=== PATIENT | female | born 1960 ===

== ENCOUNTER 2017-03-27 19:37 | Emergency (ER) | payer OTHER ==
[2017-03-27 19:47] VITALS: BP 139/78; PULSE 113; RESP 18; TEMP 99.9; O2SAT 96
[2017-03-27] MEDS ORDERED: Sodium Chloride 0.9% 1,000 ML IV STA (20:41)
--- NOTE | 2017-03-27 20:48 | ED PDOC ---
HPI: Allergic Reaction Time Seen by Provider: 03/27/17 19:51 Chief Complaint (Nursing): Allergic Reaction Chief Complaint (Provider): Allergic Reaction History Per: Patient History/Exam Limitations: no limitations Onset/Duration Of Symptoms: Hrs Current Symptoms Are (Timing): Still Present Context: Food (shrimp) Possible Cause: Food (shrimp) Associated Symptoms: Skin Rash Additional Complaint(s): Deidre Soto, a 56 year old female, who has a past medical history of hypertension and diabetes presents to the ED for an allergic reaction. The patient states that she ate some shrimp around 1400, and then later noticed and itchy red rash on her thighs, face and abdomen. She reports that she had a similar reaction in the past but it was from eating the head of shrimp and not the tail. PMD: Enrique Sainz I Past Medical History Reviewed: Historical Data, Nursing Documentation, Vital Signs Vital Signs: Last Vital Signs Temp 99.9 F H 03/27/17 19:45 Pulse 113 H 03/27/17 19:45 Resp 18 03/27/17 19:45 BP 139/78 03/27/17 19:45 Pulse Ox 96 03/27/17 19:45 - Medical History PMH: Diabetes, HTN, Hypercholesterolemia, Hypothyroidism - Surgical History Surgical History: Appendectomy, Cholecystectomy, ( x 2) - Family History Family History: States: Unknown Family Hx - Home Medications Home Medications: Ambulatory Orders Medication Instructions Recorded Ofloxacin Ophth 0.3% [Ocuflox 1 drop LEFTEYE Q6H #0 bottle 07/20/14 Ophth 0.3%] DiphenhydrAMINE [Benadryl] 50 mg PO Q6H PRN #20 cap 03/27/17 Famotidine [Pepcid] 20 mg PO DAILY #6 tab 03/27/17 predniSONE [predniSONE Tab] 20 mg PO DAILY #12 tab 03/27/17 - Allergies Allergies/Adverse Reactions: Allergies Allergy/AdvReac Type Severity Reaction Status Date / Time allopurinol Allergy RASH Verified 03/27/17 19:48 banana Allergy RASH Verified 03/27/17 19:48 lisinopril Allergy RASH Verified 03/27/17 19:48 shrimp Allergy RASH Verified 03/27/17 19:48 Review of Systems ROS Statement: Except As Marked, All Systems Reviewed And Found Negative Skin: Positive for: Rash (itchy rash to face, thighs and abdomen.) Physical Exam - Reviewed Nursing Documentation Reviewed: Yes Vital Signs Reviewed: Yes - Physical Exam Appears: Positive for: Non-toxic, No Acute Distress Head Exam: Positive for: ATRAUMATIC, NORMAL INSPECTION, NORMOCEPHALIC Skin: Positive for: Normal Color, Warm, Dry, Rash (Erythematous papules to abdomen and b/l upper thighs) Eye Exam: Positive for: Normal appearance, EOMI, PERRL. 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 Negative for: Tachycardia Respiratory: Positive for: Normal Breath Sounds. Negative for: Wheezing, Respiratory Distress Neurologic/Psych: Positive for: Alert, Oriented, Gait - Laboratory Results Result Diagrams: 03/27/17 21:36 03/27/17 21:36 - ECG O2 Sat by Pulse Oximetry: 96 (RA) Pulse Ox Interpretation: Normal - Progress ED Course And Treament: 195 Initial Impression 56 y/o female presenting with allergic reaction Initial Plan: * CMP * CBC * Benadryl 25mg PO * NS 1000mls IV 1000mls/hr * Pepcid 20mg PO * Solu-medrol 125mg IV * Reevaluation Scribe Attestation Documented by Ceci Lombardi acting as a scribe for Yvonne Pacheco PA-C. Scribe Attestation All medical record entries made by the Scribe were at my direction and personally dictated by me. I have reviewed the chart and agree that the record accurately reflects my personal performance of the history, physical exam, medical decision making, and the department course for this patient. I have also personally directed, reviewed, and agree with the discharge instructions and disposition. Disposition - Clinical Impression Clinical Impression: Allergic reaction - Patient ED Disposition Is Patient to be Admitted: No Counseled Patient/Family Regarding: Diagnosis, Need For Followup, Rx Given - Disposition Disposition: Routine/Home Disposition Time: 22:14 Condition: GOOD Prescriptions: DiphenhydrAMINE [Benadryl] 50 mg PO Q6H PRN #20 cap PRN Reason: Itching / Pruritus Famotidine [Pepcid] 20 mg PO DAILY #6 tab predniSONE [predniSONE Tab] 20 mg PO DAILY #12 tab Instructions: General Allergic Reaction (ED) Forms: [facility] (Croatian), [facility] ED School/Work Excuse
[2017-03-27 21:43] LABS: HEMATOCRIT 44.6 % (34.0-47.0); MEAN CELL VOLUME 95.6 fl (81.0-99.0); MEAN CORPUSCULAR HEMOGLOBIN 31.8 pg (27.0-31.0); MEAN CORPUSCULAR HGB CONC 33.3 g/dL (33.0-37.0); RED CELL DISTRIBUTION WIDTH 13.4 % (11.5-14.5); WHITE BLOOD COUNT 11.4 K/uL (4.8-10.8)
[2017-03-27 21:59] LABS: ALB/GLOB RATIO 1.2 (1.0-2.1); ALKALINE PHOSPHATASE 59 U/L (38-126); ALT/SGPT 98 U/L (9-52); AST/SGOT 58 U/L (14-36); BILIRUBIN,TOTAL 0.5 mg/dl (0.2-1.3); BLOOD UREA NITROGEN 20 mg/dl (7-17); CALCIUM 10.4 mg/dL (8.4-10.2); CARBON DIOXIDE 27 mmol/L (22-30); CHLORIDE 99 mmol/L (98-107); GFR AFRICAN-AMERICAN > 60; GLUCOSE,RANDOM 130 mg/dL (65-105); POTASSIUM 3.9 MMOL/L (3.6-5.0); SODIUM 140 mmol/l (132-148); TOTAL PROTEIN 7.6 G/DL (6.3-8.2)
== END 2017-03-28 00:03 | disposition home or self-care (01) ==
LOC: H.ER 19:37
DX: T78.1XXA Other adverse food reactions, not elsewhere classified, initial encounter (principal); X58.XXXA Exposure to other specified factors, initial encounter
CPT/HCPCS: 80053; 85027; 99282; J2930; J7040

== ENCOUNTER 2017-05-05 22:19 | Inpatient (IN) | payer BC, OTHER ==
[2017-05-05] MEDS ORDERED: Albuterol-Ipratrop 3 mg / 0.5 (3 ml) UD INH STA (22:51)
[2017-05-05 23:09] LABS: BASO # 0.1 K/uL (0.0-0.2); BASO % 0.9 % (0.0-2.0); EOS # 0.1 K/uL (0.0-0.7); EOS % 1.7 % (0.0-4.0); HEMATOCRIT 46.5 % (34.0-47.0); LYMPH # 1.6 K/uL (1.0-4.3); LYMPH % 20.1 % (20.0-40.0); MEAN CELL VOLUME 95.1 fl (81.0-99.0); MEAN CORPUSCULAR HEMOGLOBIN 31.6 pg (27.0-31.0); MEAN CORPUSCULAR HGB CONC 33.3 g/dL (33.0-37.0); MEAN PLATELET VOLUME 9.1 fl (7.2-11.7); MONO % 13.4 % (0.0-10.0); NEUT % 63.9 % (50.0-75.0); NRBC % 0.1 % (0.0-0.0); RED CELL DISTRIBUTION WIDTH 13.6 % (11.5-14.5); WHITE BLOOD COUNT 7.8 K/uL (4.8-10.8)
[2017-05-05 23:17] LABS: BLOOD UREA NITROGEN 18 mg/dl (7-17); CARBON DIOXIDE 27 mmol/L (22-30); CHLORIDE 103 mmol/L (98-107); GFR AFRICAN-AMERICAN > 60; GLUCOSE,RANDOM 125 mg/dL (65-105); POTASSIUM 4.2 MMOL/L (3.6-5.0); SODIUM 138 mmol/l (132-148)
[2017-05-05] MEDS ORDERED: Magnesium Sulfate 2 gm/50 ml 2 GM/50 ML BAG IVPB ONE (23:21)
[2017-05-05] MEDS ORDERED: Magnesium Sulfate 2 gm/50 ml 2 GM/50 ML BAG ONE (23:45)
--- NOTE | 2017-05-05 23:48 | ED PDOC ---
HPI: SOB/CHF/COPD Chief Complaint (Nursing): Shortness Of Breath Chief Complaint (Provider): my asthma is back History Per: Patient History/Exam Limitations: no limitations Onset/Duration Of Symptoms: Days (2), Gradual Current Symptoms Are (Timing): Still Present Quality: Tightness Exacerbating Factor(s): Exertion Severity: Moderate Recently: Treated By A Physician Additional Complaint(s): 56yo female hx asthma presents c/o SOB, cough and chest tightness for 2 days. Using albuterol nebs q4h at home without improvement. Denies fever, hemoptysis or recent hospitalization. Thinks construction on her roof triggered the attack- dust and odors at home. PMD Lio Past Medical History Reviewed: Historical Data, Nursing Documentation, Vital Signs Vital Signs: Last Vital Signs Temp 99.8 F H 05/05/17 22:27 Pulse 106 H 05/05/17 22:27 Resp 20 05/05/17 23:00 BP 144/82 05/05/17 22:27 Pulse Ox 94 L 05/06/17 00:10 - Medical History PMH: Asthma, Diabetes, HTN, Hypercholesterolemia, Hypothyroidism - Surgical History Surgical History: Appendectomy, Cholecystectomy, ( x 2) - Family History Family History: States: Unknown Family Hx - Living Arrangements Living Arrangements: With Family - Social History Current smoker - smoking cessation education provided: No - Home Medications Home Medications: Ambulatory Orders Medication Instructions Recorded Ofloxacin Ophth 0.3% [Ocuflox 1 drop LEFTEYE Q6H #0 bottle 07/20/14 Ophth 0.3%] DiphenhydrAMINE [Benadryl] 50 mg PO Q6H PRN #20 cap 03/27/17 Famotidine [Pepcid] 20 mg PO DAILY #6 tab 03/27/17 predniSONE [predniSONE Tab] 20 mg PO DAILY #12 tab 03/27/17 - Allergies Allergies/Adverse Reactions: Allergies Allergy/AdvReac Type Severity Reaction Status Date / Time allopurinol Allergy RASH Verified 03/27/17 19:48 banana Allergy RASH Verified 03/27/17 19:48 lisinopril Allergy RASH Verified 03/27/17 19:48 shrimp Allergy RASH Verified 03/27/17 19:48 Review of Systems ROS Statement: Except As Marked, All Systems Reviewed And Found Negative Constitutional: Negative for: Fever, Chills Cardiovascular: Positive for: Chest Pain Respiratory: Positive for: Cough, Shortness of Breath, Pleuritic Pain, Wheezing Gastrointestinal: Negative for: Nausea, Abdominal Pain Genitourinary Female: Negative for: Dysuria, Frequency Skin: Negative for: Rash, Lesions, Jaundice Neurological: Negative for: Weakness, Dizziness Psych: Negative for: Depression Physical Exam - Reviewed Nursing Documentation Reviewed: Yes Vital Signs Reviewed: Yes - Physical Exam Appears: Positive for: Well, Non-toxic, No Acute Distress Head Exam: Positive for: ATRAUMATIC, NORMAL INSPECTION, NORMOCEPHALIC Skin: Positive for: Normal Color, Warm, DRY Eye Exam: Positive for: EOMI, Normal appearance, PERRL ENT: Positive for: Normal ENT Inspection Neck: Positive for: Normal, Painless ROM Cardiovascular/Chest: Positive for: Regular Rate, Rhythm Respiratory: Positive for: Decreased Breath Sounds, Wheezing. Negative for: Respiratory Distress Gastrointestinal/Abdominal: Positive for: Normal Exam, Bowel Sounds, Soft. Negative for: Tenderness Back: Positive for: Normal Inspection Extremity: Positive for: Normal ROM Neurologic/Psych: Positive for: Alert, Oriented. Negative for: Motor/Sensory Deficits - Laboratory Results Result Diagrams: 05/05/17 23:05 05/05/17 23:05 - ECG ECG: Positive for: Interpreted By In ECG Rhythm: Positive for: Sinus Tachycardia, ST/T Changes O2 Sat by Pulse Oximetry: 94 Pulse Ox Interpretation: Abnormal - Radiology X-Ray: Interpreted by In X-Ray Interpretation: No Acute Disease Medical Decision Making Medical Decision Making: workup for asthma initiated with bronchodilators, mag sulfate, solumedrol labs reviewed and clinically unremarkable endorsed Dr Baum 1220am pending re-eval and dispo pt is a [employer] employee. Disposition - Clinical Impression Clinical Impression: Dyspnea, Asthma exacerbation - Patient ED Disposition Is Patient to be Admitted: Transfer of Care - Disposition Disposition: Transfer of Care Disposition Time: 00:28 Condition: STABLE Forms: [employer] Connect (Faroese) Patient Signed Over To: Toño Baum Handoff Comments: re-eval and dispo
[2017-05-06] MEDS ORDERED: Albuterol-Ipratrop 3 mg / 0.5 (3 ml) UD INH STA ×2 (00:23→02:26)
--- NOTE | 2017-05-06 00:51 | ED PDOC ---
- Laboratory Results Result Diagrams: 05/05/17 23:05 05/05/17 23:05 - ECG O2 Sat by Pulse Oximetry: 94 Medical Decision Making Medical Decision Making: Time: 00:00 --Patient is signed out to me by Dr. Hermelindo Alfred III. Pending labs and reevaluation. Time: 2:26 --Labs reviewed show no clinically significant abnormalities. Patient reports feeling persistently short of breath. --On reexamination, patient still has bilateral expiratory wheezing. Will order third Duoneb treatment. --Patient will be hospitalized as observation status for asthma exacerbation, under the service of Dr. Vaca. Scribe Attestation: Documented by Lisandra Uriarte, acting as a scribe for Toño Baum MD Provider Scribe Attestation: All medical record entries made by the Scribe were at my direction and personally dictated by me. I have reviewed the chart and agree that the record accurately reflects my personal performance of the history, physical exam, medical decision making, and the department course for this patient. I have also personally directed, reviewed, and agree with the discharge instructions and disposition. Disposition Discussed With : Enrique Vaca - Clinical Impression Clinical Impression: Dyspnea, Asthma exacerbation - POA Present On Arrival: None - Disposition Disposition: Hospitalized as Observation Patient Disposition Time: 02:26 Condition: FAIR
[2017-05-06] MEDS ORDERED: Albuterol-Ipratrop 3 mg / 0.5 (3 ml) UD ONE ×2 (01:16→02:35)
[2017-05-06] MEDS ORDERED: methylPREDNISolone 60 MG in Sodium Chloride 0.9% 50 ML IV SCH (04:00)
[2017-05-06] MEDS ORDERED: Albuterol-Ipratrop 3 mg / 0.5 (3 ml) UD INH SCH ×2 (04:00→08:00)
[2017-05-06] MEDS: Levothyroxine 88 MCG TAB PO SCH (08:38)
[2017-05-06] MEDS: Fluticasone-Salmeterol 250-50mcg Diskus IH SCH ×2 (08:39→21:09)
[2017-05-06] MEDS: Promethazine DM 12.5 mg-30 mg/10 ml Syrup PO PRN ×2 (08:48→14:33)
[2017-05-06 09:00] LABS: ABG ALLEN TEST YES; ARTERIAL BLOOD GAS HCO3 23.4 mmol/L (21-28); ARTERIAL BLOOD GAS O2 CAPACITY 20.8 mL/dL (16-24); ARTERIAL BLOOD GAS O2 CONTENT 19.8 ML/dL (15-23); ARTERIAL BLOOD GAS PH 7.42 (7.35-7.45); ARTERIAL BLOOD GAS PO2 62 mm/Hg (80-100); ARTERIAL BLOOD HGB O2 SAT 91.6 % (95.0-98.0); CARBOXYHEMOGLOBIN 2.1 % (0.5-1.5); HHB 4.7 % (0.0-5.0); METHEMOGLOBIN 1.7 % (0.0-3.0)
[2017-05-06] MEDS ORDERED: METFORMIN HCL PO SCH (09:00)
[2017-05-06] MEDS ORDERED: SITAGLIPTIN PHOS PO SCH (09:00)
--- NOTE | 2017-05-06 09:51 | RAD ---
HISTORY: cough COMPARISON: No prior. TECHNIQUE: Chest PA and lateral FINDINGS: LUNGS: No active pulmonary disease. PLEURA: No significant pleural effusion identified. No pneumothorax apparent. CARDIOVASCULAR: Atherosclerotic aortic calcifications. Cardiomediastinal silhouette within normal limits. OSSEOUS STRUCTURES: Unchanged. VISUALIZED UPPER ABDOMEN: Normal. OTHER FINDINGS: None. IMPRESSION: No active disease.
--- NOTE | 2017-05-06 12:15 | CARD ---
APPROVED REPORT EKG Measurement Heart [id number] <Conclusion> Sinus tachycardia Right bundle branch block Abnormal ECG
[2017-05-06] MEDS: Albuterol-Ipratrop 3 mg / 0.5 (3 ml) UD INH SCH ×4 (13:55→23:58)
[2017-05-06] MEDS: Insulin Regular 100 units/ml SC SCH (22:15)
[2017-05-07] MEDS: Albuterol-Ipratrop 3 mg / 0.5 (3 ml) UD INH SCH ×3 (04:59→11:21)
[2017-05-07] MEDS: Levothyroxine 88 MCG TAB PO SCH (06:41)
[2017-05-07] MEDS: Insulin Regular 100 units/ml SC SCH ×2 (07:34→12:16)
[2017-05-07] MEDS: Fluticasone-Salmeterol 250-50mcg Diskus IH SCH (08:40)
[2017-05-07 09:00] VITALS: BP 118/66; PULSE 102; RESP 20; TEMP 97.8; O2SAT 96
--- NOTE | 2017-05-07 10:23 | CP.PCM.DIS ---
Provider - Provider Date of Admission: 05/06/17 14:18 Attending physician: Enrique Salas MD Time Spent in preparation of Discharge (in minutes): 35 Diagnosis - Discharge Diagnosis (1) Diabetes 1.5, managed as type 2 Status: Acute (2) Hypertension Status: Acute (3) Asthma exacerbation Status: Acute Hospital Course - Lab Results Lab Results: Most Recent Lab Values WBC 7.8 K/uL (4.8-10.8) 05/05/17 23:05 RBC 4.88 Mil/uL (3.80-5.20) 05/05/17 23:05 Hgb 15.5 g/dL (12.0-16.0) 05/05/17 23:05 Hct 46.5 % (34.0-47.0) 05/05/17 23:05 MCV 95.1 fl (81.0-99.0) 05/05/17 23:05 MCH 31.6 pg (27.0-31.0) H 05/05/17 23:05 MCHC 33.3 g/dL (33.0-37.0) 05/05/17 23:05 RDW 13.6 % (11.5-14.5) 05/05/17 23:05 Plt Count 242 K/uL (130-400) 05/05/17 23:05 MPV 9.1 fl (7.2-11.7) 05/05/17 23:05 Neut % (Auto) 63.9 % (50.0-75.0) 05/05/17 23:05 Lymph % (Auto) 20.1 % (20.0-40.0) 05/05/17 23:05 [place] % (Auto) 13.4 % (0.0-10.0) H 05/05/17 23:05 Eos % (Auto) 1.7 % (0.0-4.0) 05/05/17 23:05 Baso % (Auto) 0.9 % (0.0-2.0) 05/05/17 23:05 Neut # 5.0 K/uL (1.8-7.0) 05/05/17 23:05 Lymph # 1.6 K/uL (1.0-4.3) 05/05/17 23:05 [place] # 1.0 K/uL (0.0-0.8) H 05/05/17 23:05 Eos # 0.1 K/uL (0.0-0.7) 05/05/17 23:05 Baso # 0.1 K/uL (0.0-0.2) 05/05/17 23:05 pCO2 34 mm/Hg (35-45) L 05/06/17 07:23 pO2 62 mm/Hg (80-100) L 05/06/17 07:23 HCO3 23.4 mmol/L (21-28) 05/06/17 07:23 ABG pH 7.42 (7.35-7.45) 05/06/17 07:23 ABG Total CO2 23.1 mmol/L (22-28) 05/06/17 07:23 ABG O2 Saturation 95.1 % (95-98) 05/06/17 07:23 ABG O2 Content 19.8 ML/dL (15-23) 05/06/17 07:23 ABG Base Excess -1.7 mmol/L (-2.0-3.0) 05/06/17 07:23 ABG Hemoglobin 15.4 g/dL (11.7-17.4) 05/06/17 07:23 ABG Carboxyhemoglobin 2.1 % (0.5-1.5) H 05/06/17 07:23 POC ABG HHb (Measured) 4.7 % (0.0-5.0) 05/06/17 07:23 ABG Methemoglobin 1.7 % (0.0-3.0) 05/06/17 07:23 ABG O2 Capacity 20.8 mL/dL (16-24) 05/06/17 07:23 Jamal Test Yes 05/06/17 07:23 A-a O2 Difference 45.0 mm/Hg 05/06/17 07:23 Hgb O2 Saturation 91.6 % (95.0-98.0) L 05/06/17 07:23 FiO2 21.0 % 05/06/17 07:23 Blood Gas Comments room air 05/06/17 07:23 Sodium 138 mmol/l (132-148) 05/05/17 23:05 Potassium 4.2 MMOL/L (3.6-5.0) 11/30/17 23:05 Chloride 103 mmol/L (98-107) 05/05/17 23:05 Carbon Dioxide 27 mmol/L (22-30) 05/05/17 23:05 Anion Gap 12 (10-20) 05/05/17 23:05 BUN 18 mg/dl (7-17) H 05/05/17 23:05 Creatinine 0.8 mg/dl (0.7-1.2) 05/05/17 23:05 Est GFR ( Amer) > 60 05/05/17 23:05 Est GFR (Non-Af Amer) > 60 05/05/17 23:05 POC Glucose (mg/dL) 135 mg/dL (65-110) H 05/07/17 05:55 Random Glucose 125 mg/dL (65-105) H 05/05/17 23:05 Calcium 10.0 mg/dL (8.4-10.2) 05/05/17 23:05 Troponin I < 0.0120 ng/mL (0.00-0.120) 05/05/17 23:05 NT-Pro-B Natriuret Pep 60.4 pg/ml (0-900) 05/05/17 23:05 - Hospital Course Hospital Course: sob improved with therapy Discharge Exam - Head Exam Head Exam: ATRAUMATIC, NORMAL INSPECTION, NORMOCEPHALIC - Eye Exam Eye Exam: EOMI, Normal appearance, PERRL Pupil Exam: NORMAL ACCOMODATION, PERRL - GI/Abdominal Exam GI & Abdominal Exam: Normal Bowel Sounds - Rectal Exam Rectal Exam: NORMAL INSPECTION - Neurological Exam Neurological exam: Alert, CN II-XII Intact, Normal Gait, Oriented x3, Reflexes Normal - Psychiatric Exam Psychiatric exam: Normal Affect, Normal Mood - Skin Skin Exam: Dry, Intact, Normal Color, Warm Discharge Plan - Follow Up Plan Condition: FAIR Disposition: HOME/ ROUTINE Patient education suggested?: Yes Additional Instructions: discharge today followup with dr salas
--- NOTE | 2017-05-09 09:03 | HP ---
HISTORY OF PRESENT ILLNESS: Ms. Charles Escamilla is a 56-year-old female who was admitted via the emergency room because of shortness of breath, chest tightness for 2 days prior to presentation. She had used multiple aerosolized bronchodilators at home, but symptoms have persisted. She felt like passing out and was brought to the emergency room where she was admitted for acute exacerbation of asthma. PAST MEDICAL HISTORY: Asthma, diabetes mellitus, hypertension, hyperlipidemia, hypothyroidism. FAMILY HISTORY: Noncontributory. 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 She indicates that she getting a elisabeth job done at home and seems to have exacerbated asthma. PHYSICAL EXAMINATION GENERAL: The patient is alert, oriented, appears to be short of breath at rest or with mild exertion. VITAL SIGNS: Blood pressure 109/68 with a pulse of 89, respiratory rate 20 per minute. She is afebrile and O2 sat 96% on nasal cannula oxygen. SKIN: Shows fair turgor. HEENT: Pupils equal and reactive to light and accommodation. Mouth shows fair hygiene. NECK: JVP flat. LUNGS: Fair aeration with moderate wheezing and rales. HEART: S1 and S2. BREASTS: Normal. ABDOMEN: Soft and nontender. No organomegaly. EXTREMITIES: Shows no edema or cyanosis. CENTRAL NERVOUS SYSTEM: Grossly intact. RECTAL AND GENITAL: Deferred. LABORATORY DATA: WBC 7.8, hemoglobin 15.5, platelet count 242,000. Sodium 138, potassium 4.2, BUN of 18, creatinine 0.8, serum glucose 183. Arterial blood gas, pH 7.42, pCO2 of 34, pO2 of 62, O2 saturation 95%. Chest x-ray, no acute cardiopulmonary pathology. EKG, sinus tachycardia, right bundle branch block. IMPRESSION: Acute exacerbation of asthma, diabetes mellitus with mild hyperglycemia, hypertension. PLAN: Intravenous steroids, aerosolized bronchodilators, oxygen. We will continue therapy as ordered. If clinically stable, we will discharge home in a.m. on oral steroids and aerosolized bronchodilators. Enrique Vaca MD
== END 2017-05-07 13:36 | disposition home or self-care (01) | DRG 203 ==
LOC: H.ER 22:19 → H.ERHOLD 05-06 02:25 → H.MEDSURG1 05-06 04:06 → OBSVTOIN 05-06 14:18
PROVIDERS: ADMIT Internal Medicine Pulmonary Disease; ATTEND Internal Medicine Pulmonary Disease
DX: J45.901 Unspecified asthma with (acute) exacerbation (principal); E11.65 Type 2 diabetes mellitus with hyperglycemia; E03.9 Hypothyroidism, unspecified; E78.5 Hyperlipidemia, unspecified; I10 Essential (primary) hypertension; E78.00 Pure hypercholesterolemia, unspecified; Z91.013 Allergy to seafood; Z91.018 Allergy to other foods